=== PATIENT | female | born 1940 | race Caucasian/White ===

== ENCOUNTER 2017-10-19 10:58 | Inpatient (IN) | payer OTHER ==
[2017-10-19 12:13] LABS: ADD MAN DIFF? NO
[2017-10-19 12:15] LABS: WHITE BLOOD COUNT 8.6 10^3/ul (4.8-10.8)
[2017-10-19 12:15] LABS: BASOPHIL # 0.1 10^3/ul (0.0-0.1); BASOPHILS % 0.6 % (0.0-2.0); EOSINOPHILS # 0.1 10^3/ul (0.0-0.5); EOSINOPHILS % 1.3 % (0.0-7.0); HEMATOCRIT 40.2 % (37.0-47.0); HEMOGLOBIN 13.6 g/dl (12.0-16.0); LYMPHOCYTES % 11.8 % (15.0-51.0); MEAN CORPUSCULAR HEMOGLOBIN 31.4 pg (29.0-33.0); MEAN CORPUSCULAR HGB CONC 33.8 g/dl (32.0-37.0); MEAN CORPUSCULAR VOLUME 92.8 fl (82.0-101.0); MEAN PLATELET VOLUME 9.4 fl (7.4-10.4); MONOCYTE # 0.6 10^3/ul (0.3-0.9); MONOCYTES % 6.5 % (0.0-11.0); NEUTROPHIL # 6.8 10^3/ul (1.6-7.5); NEUTROPHILS % 79.3 % (39.0-77.0); PLATELET COUNT 237 10^3/UL (140-415); RED BLOOD COUNT 4.33 10^6/ul (4.20-5.40); RED CELL DISTRIBUTION WIDTH 12.9 % (11.5-14.5)
[2017-10-19 12:35] LABS: ANION GAP 13 (8-16); BLOOD UREA NITROGEN 16 mg/dl (7-20); CALCIUM 8.9 mg/dl (8.4-10.2); CARBON DIOXIDE 27 mmol/L (21-31); CHLORIDE 105 mmol/L (97-110); CREATININE 0.78 mg/dl (0.44-1.00); GLUCOSE 136 mg/dl (70-220); POTASSIUM 3.9 mmol/L (3.5-5.1); SODIUM 141 mmol/L (135-144)
[2017-10-19 12:48] LABS: TROPONIN-I < 0.012 ng/ml (0.00-0.12)
[2017-10-19 13:04] LABS: FREE T4 (FREE THYROXINE) 1.33 ng/dl (0.78-2.44)
[2017-10-19] MEDS ORDERED: ONDANSETRON 4 MG INJ IV (13:30)
[2017-10-19] MEDS ORDERED: ACETAMINOPHEN 325 MG TAB PO (13:30)
[2017-10-19] MEDS ORDERED: NACL 0.9% 3 ML SYG IV (14:30)
[2017-10-19] MEDS ORDERED: DOCUSATE SODIUM 100 MG CAP PO (14:30)
[2017-10-19] MEDS ORDERED: LORAZEPAM 0.5 MG TAB PO (14:30)
[2017-10-19 14:33] LABS: INR 0.93; PROTIME 12.5 Sec (11.9-14.9)
[2017-10-19 14:35] LABS: D-DIMER 970.73 ng/ml (<460)
[2017-10-19] MEDS: SOD CHLORIDE 0.9% 1,000 ML IV (16:02)
[2017-10-19] MEDS: ENOXAPARIN 30 MG/0.3 ML SYG SC ×2 (16:07→22:41)
[2017-10-19] MEDS: ENOXAPARIN 100 MG/ML SYG SC ×2 (16:08→22:42)
[2017-10-19] MEDS ORDERED: DILTIAZEM-D5W 125MG/125ML DRIP 125 ML IV (17:00)
[2017-10-19 17:22] LABS: CREATINE KINASE 54 IU/L (23-200)
[2017-10-19 17:35] LABS: CK INDEX 1.3; CK-MB 0.69 ng/ml (0.0-2.4)
[2017-10-19 17:39] LABS: TROPONIN-I < 0.012 ng/ml (0.00-0.12)
[2017-10-19] MEDS: IOHEXOL 350MG/ML 50 ML BTL (19:18)
[2017-10-19] MEDS: SOD CHLORIDE 0.9% 100 ML (19:18)
[2017-10-19] MEDS: IOHEXOL 100 ML (19:18)
[2017-10-19] MEDS ORDERED: ENOXAPARIN 40 MG/0.4 ML SYG SC (21:00)
[2017-10-19] MEDS: FAMOTIDINE 20 MG TAB PO (21:17)
[2017-10-19] MEDS: DILTIAZEM 30 MG TAB PO (21:17)
[2017-10-19] MEDS: ATORVASTATIN 80 MG TAB PO (21:19)
[2017-10-19] MEDS: METOPROLOL 100 MG TAB PO (21:19)
[2017-10-20 01:10] LABS: CREATINE KINASE 43 IU/L (23-200)
[2017-10-20 01:23] LABS: CK INDEX 1.3; CK-MB 0.54 ng/ml (0.0-2.4)
[2017-10-20 01:27] LABS: TROPONIN-I < 0.012 ng/ml (0.00-0.12)
[2017-10-20] MEDS: DILTIAZEM 30 MG TAB PO ×2 (01:59→05:46)
[2017-10-20 05:12] LABS: ADD MAN DIFF? NO
[2017-10-20 05:16] LABS: WHITE BLOOD COUNT 4.8 10^3/ul (4.8-10.8)
[2017-10-20 05:16] LABS: BASOPHIL # 0.1 10^3/ul (0.0-0.1); BASOPHILS % 1.5 % (0.0-2.0); EOSINOPHILS # 0.2 10^3/ul (0.0-0.5); EOSINOPHILS % 3.1 % (0.0-7.0); HEMATOCRIT 36.3 % (37.0-47.0); HEMOGLOBIN 12.2 g/dl (12.0-16.0); LYMPHOCYTES # 1.7 10^3/ul (0.8-2.9); LYMPHOCYTES % 34.2 % (15.0-51.0); MEAN CORPUSCULAR HEMOGLOBIN 31.4 pg (29.0-33.0); MEAN CORPUSCULAR HGB CONC 33.6 g/dl (32.0-37.0); MEAN CORPUSCULAR VOLUME 93.3 fl (82.0-101.0); MONOCYTE # 0.6 10^3/ul (0.3-0.9); MONOCYTES % 11.6 % (0.0-11.0); NEUTROPHIL # 2.4 10^3/ul (1.6-7.5); NEUTROPHILS % 49.2 % (39.0-77.0); PLATELET COUNT 209 10^3/UL (140-415); RED BLOOD COUNT 3.89 10^6/ul (4.20-5.40); RED CELL DISTRIBUTION WIDTH 13.2 % (11.5-14.5)
[2017-10-20] MEDS: SOD CHLORIDE 0.9% 1,000 ML IV ×3 (05:44→21:25)
[2017-10-20 05:55] LABS: ALANINE AMINOTRANSFERASE 24 IU/L (13-69); ALBUMIN 2.9 g/dl (3.3-4.9); ALBUMIN/GLOBULIN RATIO 0.96; ALKALINE PHOSPHATASE 107 IU/L (42-121); ANION GAP 13 (8-16); ASPARTATE AMINO TRANSFERASE 30 IU/L (15-46); BILIRUBIN,INDIRECT 0.3 mg/dl (0-1.1); BILIRUBIN,TOTAL 0.3 mg/dl (0.2-1.3); BLOOD UREA NITROGEN 15 mg/dl (7-20); CALCIUM 8.2 mg/dl (8.4-10.2); CARBON DIOXIDE 27 mmol/L (21-31); CHLORIDE 108 mmol/L (97-110); CREATININE 0.85 mg/dl (0.44-1.00); GLUCOSE 112 mg/dl (70-220); POTASSIUM 3.5 mmol/L (3.5-5.1); SODIUM 144 mmol/L (135-144); TOTAL PROTEIN 5.9 g/dl (6.1-8.1)
[2017-10-20] MEDS: POLYETHYLENE GLYCOL 17 GM PACKET PO (09:00)
[2017-10-20] MEDS: LOSARTAN 50 MG TAB PO (10:06)
[2017-10-20] MEDS: FAMOTIDINE 20 MG TAB PO ×2 (10:07→20:33)
[2017-10-20] MEDS: AMLODIPINE 10 MG TAB PO (10:07)
[2017-10-20] MEDS: METOPROLOL 100 MG TAB PO ×2 (10:07→21:17)
[2017-10-20] MEDS: FUROSEMIDE 40 MG TAB PO (10:07)
[2017-10-20] MEDS: ENOXAPARIN 100 MG/ML SYG SC ×2 (10:10→21:18)
[2017-10-20] MEDS: ENOXAPARIN 30 MG/0.3 ML SYG SC (10:11)
[2017-10-20] MEDS: ASPIRIN (EC) 81 MG TAB PO (10:12)
[2017-10-20] MEDS: POTASSIUM CHLORIDE (SR) 20 MEQ TAB PO (11:49)
[2017-10-20] MEDS: DILTIAZEM (CD) 180 MG CAP PO (11:49)
[2017-10-20] MEDS: ATORVASTATIN 80 MG TAB PO (21:16)
[2017-10-21 05:42] LABS: ADD MAN DIFF? NO
[2017-10-21 05:47] LABS: WHITE BLOOD COUNT 6.7 10^3/ul (4.8-10.8)
[2017-10-21 05:47] LABS: BASOPHIL # 0.1 10^3/ul (0.0-0.1); BASOPHILS % 1.2 % (0.0-2.0); EOSINOPHILS # 0.2 10^3/ul (0.0-0.5); EOSINOPHILS % 2.8 % (0.0-7.0); HEMOGLOBIN 12.4 g/dl (12.0-16.0); LYMPHOCYTES # 1.4 10^3/ul (0.8-2.9); LYMPHOCYTES % 21.1 % (15.0-51.0); MEAN CORPUSCULAR HEMOGLOBIN 31.2 pg (29.0-33.0); MEAN CORPUSCULAR HGB CONC 33.5 g/dl (32.0-37.0); MONOCYTE # 0.7 10^3/ul (0.3-0.9); MONOCYTES % 10.8 % (0.0-11.0); NEUTROPHIL # 4.3 10^3/ul (1.6-7.5); NEUTROPHILS % 63.5 % (39.0-77.0); PLATELET COUNT 220 10^3/UL (140-415); RED BLOOD COUNT 3.98 10^6/ul (4.20-5.40); RED CELL DISTRIBUTION WIDTH 13.2 % (11.5-14.5)
[2017-10-21 06:20] LABS: ALANINE AMINOTRANSFERASE 30 IU/L (13-69); ALBUMIN 3.1 g/dl (3.3-4.9); ALBUMIN/GLOBULIN RATIO 0.93; ALKALINE PHOSPHATASE 116 IU/L (42-121); ANION GAP 13 (8-16); ASPARTATE AMINO TRANSFERASE 33 IU/L (15-46); BILIRUBIN,INDIRECT 0.3 mg/dl (0-1.1); BILIRUBIN,TOTAL 0.3 mg/dl (0.2-1.3); BLOOD UREA NITROGEN 10 mg/dl (7-20); CALCIUM 8.4 mg/dl (8.4-10.2); CARBON DIOXIDE 25 mmol/L (21-31); CHLORIDE 109 mmol/L (97-110); CREATININE 0.71 mg/dl (0.44-1.00); GLUCOSE 110 mg/dl (70-220); POTASSIUM 3.4 mmol/L (3.5-5.1); SODIUM 144 mmol/L (135-144); TOTAL PROTEIN 6.4 g/dl (6.1-8.1)
[2017-10-21] MEDS: DILTIAZEM (CD) 180 MG CAP PO (08:20)
[2017-10-21] MEDS: ASPIRIN (EC) 81 MG TAB PO (08:20)
[2017-10-21] MEDS: FAMOTIDINE 20 MG TAB PO (08:20)
[2017-10-21] MEDS: METOPROLOL 100 MG TAB PO (08:21)
[2017-10-21] MEDS: FUROSEMIDE 40 MG TAB PO (08:21)
[2017-10-21] MEDS: LOSARTAN 50 MG TAB PO (08:22)
[2017-10-21] MEDS: AMLODIPINE 10 MG TAB PO (08:22)
[2017-10-21] MEDS: ENOXAPARIN 100 MG/ML SYG SC (08:24)
[2017-10-21] MEDS: POLYETHYLENE GLYCOL 17 GM PACKET PO (08:24)
[2017-10-21 08:39] LABS: PHOSPHORUS 3.6 mg/dl (2.5-4.9)
[2017-10-21] MEDS: POTASSIUM CHLORIDE (SR) 20 MEQ TAB PO (09:56)
[2017-10-21] MEDS: DIGOXIN 0.125 MG TAB PO (14:02)
== END 2017-10-21 15:01 | disposition home health service (06) | DRG 309 ==
LOC: E/R 10:58 → MS3 12:35
DX: I48.91 Unspecified atrial fibrillation (principal); Z68.43 Body mass index [BMI] 50.0-59.9, adult; E78.5 Hyperlipidemia, unspecified; E66.01 Morbid (severe) obesity due to excess calories; K80.20 Calculus of gallbladder without cholecystitis without obstruction; K44.9 Diaphragmatic hernia without obstruction or gangrene; E07.9 Disorder of thyroid, unspecified; R59.0 Localized enlarged lymph nodes; I11.9 Hypertensive heart disease without heart failure
CPT/HCPCS: 36415; 71045; 71275; 76536; 80048; 80053; 82550; 82553; 83735; 84100; 84439; 84443; 84484; 85025; 85378; 85610; 93005; 93306; 99285-25